=== PATIENT | female | born 1955 | race Caucasian/White ===

== ENCOUNTER 2018-01-31 08:23 | Inpatient (IN) ==
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
[2018-01-31] MEDS ORDERED: Morphine Inj 4 MG/ML Vial IV.PUSH ONE ×2 (09:46→11:38)
[2018-01-31 10:19] LABS: Baso % (Auto) 0.7 % (0.0-2.0); Eos # (Auto) 0.2 th/mm3 (0.0-0.4); Hematocrit 37.2 % (35.0-46.0); Hemoglobin 12.4 gm/dL (11.6-15.3); Lymph # (Auto) 1.7 th/mm3 (1.0-4.8); Lymph % (Auto) 31.7 % (9.0-44.0); Mean Corpuscular HGB Conc 33.3 % (32.0-36.0); Mean Corpuscular Hemoglobin 30.1 pg (27.0-34.0); Mean Corpuscular Volume 90.7 fL (80.0-100.0); Mean Platelet Volume 9.1 fL (7.0-11.0); Mono # (Auto) 0.5 th/mm3 (0.0-0.9); Mono % (Auto) 8.7 % (0.0-8.0); Neut # (Auto) 3.1 th/mm3 (1.8-7.7); Neut % (Auto) 55.9 % (16.0-70.0); Platelet Count 246 th/mm3 (150-450); White Blood Count 5.5 th/mm3 (4.0-11.0)
[2018-01-31 10:54] LABS: Calcium 9.3 mg/dL (8.5-10.1); Carbon Dioxide 25.6 meq/L (21.0-32.0); Potassium 3.8 meq/L (3.5-5.1)
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
[2018-01-31] MEDS ORDERED: Acetaminophen 325 MG Tablet PO PRN (13:34)
[2018-01-31] MEDS ORDERED: Bisacodyl 10 MG Supp RECTAL PRN (13:34)
[2018-01-31] MEDS ORDERED: Naloxone Inj 0.4 MG/ML Vial IV.PUSH PRN (13:35)
[2018-01-31] MEDS ORDERED: Ketorolac Inj 30 MG/ML (IVP) Vial IV.PUSH PRN (13:36)
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
[2018-01-31] MEDS: Morphine Inj 4 MG/ML Vial IV.PUSH PRN (16:11)
[2018-01-31] MEDS: Senna/Docusate Sodium 8.6/50 MG Tablet PO SCH (20:27)
[2018-01-31] MEDS: oxyCODONE/Acetaminophen 10/325 Tablet PO PRN (20:27)
[2018-01-31] MEDS ORDERED: Temazepam 15 MG Capsule PO PRN (21:00)
[2018-02-01] MEDS: Morphine Inj 4 MG/ML Vial IV.PUSH PRN ×3 (00:53→17:55)
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
[2018-02-01] MEDS: Ketorolac Inj 30 MG/ML (IVP) Vial IV.PUSH SCH ×2 (09:25→17:52)
[2018-02-01] MEDS: Senna/Docusate Sodium 8.6/50 MG Tablet PO SCH ×2 (09:26→20:28)
[2018-02-01] MEDS: oxyCODONE/Acetaminophen 10/325 Tablet PO PRN ×2 (15:12→21:44)
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
--- NOTE | 2018-02-01 17:12 | ECG ---
Date Performed: 02/01/2018 Time Performed: 04:22:44 PTAGE: 62 years EKG: Sinus rhythm NORMAL ECG Since the PREVIOUS TRACING , no significant change noted DOCTOR: Helen Dawson Interpretating Date/Time 02/01/2018 17:10:34
[2018-02-01] MEDS: Topiramate 25 MG Tablet PO SCH (17:54)
[2018-02-01] MEDS: clonazePAM 0.5 MG Tablet PO SCH (17:54)
[2018-02-01] MEDS: Enoxaparin Inj 40 MG/0.4 ML Syringe SQ SCH (18:10)
[2018-02-02] MEDS: Ketorolac Inj 30 MG/ML (IVP) Vial IV.PUSH SCH ×2 (00:12→09:44)
[2018-02-02] MEDS: Levothyroxine 150 MCG Tablet PO SCH (05:46)
[2018-02-02] MEDS: Morphine Inj 4 MG/ML Vial IV.PUSH PRN ×4 (05:46→23:22)
--- NOTE | 2018-02-02 07:09 | P.PNOP ---
Subjective Interval history: Resting comfortably with no new complaints Physical Exam Vital signs: Vital Signs 02/01/18 08:00 02/01/18 12:00 02/01/18 20:00 Temperature 98.0 F 98.6 F 97.9 F Pulse Rate 84 80 81 Respiratory Rate 18 16 18 Blood Pressure 112/73 101/64 97/59 L Pulse Oximetry 94 L 97 98 02/02/18 00:00 02/02/18 04:00 Temperature 97.7 F 97.3 F L Pulse Rate 76 76 Respiratory Rate 18 18 Blood Pressure 104/67 110/69 Pulse Oximetry 95 97 Intake & Output 02/01/18 02/02/18 02/02/18 18:59 06:59 18:59 Output Total 200 / 200 Balance -200 / -200 Output: Urine Amount (Catheter) 200 / 200 Indwelling Urethral Catheter 200 / 200 Other: Date of Last Bowel Movement 01/30/18 01/30/18 Narrative: Left upper extremity: Moderate swelling to proximal humerus. Skin is intact. Sling and swath is adjusted and tightened. She has intact sensation distally over the radial ulnar and median nerve distributions with good capillary refills. She is able to fully extend her fingers and make a fist Left lower extremity: No pain with hip range of motion. Dressing taken down showing 2 abrasions over the anterior portion of her knee. Swelling this +3 calf compartments are semi-soft. She has intact sensation distally with good capillary refills. She is active dorsiflexion plantar flexion foot. She has negative Homans sign - Urinary Catheter Management Indwelling Urethral Catheter Cath placed during this visit: no Results - Labs CBC & Chem 7: 01/31/18 09:07 01/31/18 09:07 Assessment and Plan - Assessment and Plan Left tibia plateau fracture Swelling is too great for surgery today. She will continue to remain in a knee immobilizer and ice cuff. Swelling will continue to take several days to improve to be able to make safe surgical incisions enclosures. We will continue to elevate and ice. Bacitracin is ordered daily over abrasions. Adaptic will be applied. Continue the ice cuff Left proximal humerus fracture Alignment is acceptable in near-anatomic. She will continue to treat this nonoperatively. She remain in a sling and swath at all times. No range of motion and nonweightbearing on the left upper extremity. Resume diet Due to nonweightbearing left lower extremity and left upper extremity she will continue to remain and we will assess swelling tomorrow morning. It is more than likely going to be Tuesday or even Tuesday before surgery is safe to proceed on the left tibial plateau
[2018-02-02] MEDS: ARIPiprazole 5 MG Tablet PO SCH (09:07)
[2018-02-02] MEDS: Senna/Docusate Sodium 8.6/50 MG Tablet PO SCH ×2 (09:07→20:56)
[2018-02-02] MEDS: clonazePAM 0.5 MG Tablet PO SCH ×2 (09:07→13:05)
[2018-02-02] MEDS: Enoxaparin Inj 40 MG/0.4 ML Syringe SQ SCH (09:07)
[2018-02-02] MEDS: Duloxetine 60 MG DR Capsule PO SCH (09:07)
[2018-02-02] MEDS: oxyCODONE/Acetaminophen 10/325 Tablet PO PRN ×2 (09:08→16:46)
[2018-02-02] MEDS: Topiramate 25 MG Tablet PO SCH ×2 (09:08→18:44)
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
[2018-02-03] MEDS: Morphine Inj 4 MG/ML Vial IV.PUSH PRN ×3 (03:49→17:51)
[2018-02-03] MEDS: Levothyroxine 150 MCG Tablet PO SCH (06:27)
[2018-02-03] MEDS: oxyCODONE/Acetaminophen 10/325 Tablet PO PRN (06:27)
--- NOTE | 2018-02-03 06:28 | P.PNOP ---
Subjective Interval history: Resting comfortably with no new complaints Physical Exam Vital signs: Vital Signs 02/02/18 08:00 02/02/18 11:46 02/02/18 16:00 Temperature 98.0 F 98.1 F 98.4 F Pulse Rate 62 66 62 Respiratory Rate 17 18 17 Blood Pressure 107/62 91/57 L 91/50 L Pulse Oximetry 97 98 97 02/02/18 20:00 02/03/18 00:00 Temperature 97.9 F 98.0 F Pulse Rate 75 78 Respiratory Rate 17 17 Blood Pressure 90/58 L 89/53 L Pulse Oximetry 94 L 93 L Intake & Output 02/02/18 02/02/18 02/03/18 06:59 18:59 06:59 Output Total 900 / 900 Balance -900 / -900 Output: Urine Amount (Catheter) 900 / 900 Indwelling Urethral Catheter 900 / 900 Other: Date of Last Bowel Movement 01/30/18 01/30/18 Narrative: Left upper extremity: Moderate swelling of her shoulder. Skin is intact. Sling and swath in place. Intact sensation distally over the radial ulnar median nerve distributions with good capillary refills. She is able to fully extend her fingers make a fist Left lower extremity: No pain with hip range of motion. Knee immobilizer in place. Swelling is improving +2. Bacitracin over abrasions. Ice cuff in place. Intact sensation distally with active dorsiflexion plantar flexion of foot - Urinary Catheter Management Indwelling Urethral Catheter Cath placed during this visit: no Results - Labs CBC & Chem 7: 01/31/18 09:07 01/31/18 09:07 Assessment and Plan - Assessment and Plan Left tibia plateau fracture Swelling is too great for surgery today. She will continue to remain in a knee immobilizer and ice cuff. Swelling will continue to take several days to improve to be able to make safe surgical incisions enclosures. We will continue to elevate and ice. Bacitracin is ordered daily over abrasions. Adaptic will be applied. Continue the ice cuff Left proximal humerus fracture Alignment is acceptable in near-anatomic. She will continue to treat this nonoperatively. She remain in a sling and swath at all times. No range of motion and nonweightbearing on the left upper extremity. N.p.o. after midnight on Tuesday night Hold Lovenox after Tuesday's dose Plan for possible surgery on Tuesday for left tibia plateau
[2018-02-03] MEDS: clonazePAM 0.5 MG Tablet PO SCH ×4 (07:52→17:06)
[2018-02-03] MEDS: Topiramate 25 MG Tablet PO SCH ×4 (07:52→17:52)
[2018-02-03] MEDS: Metoprolol Tartrate 25 MG Tablet PO SCH (08:39)
[2018-02-03] MEDS: ARIPiprazole 5 MG Tablet PO SCH (08:41)
[2018-02-03] MEDS: Senna/Docusate Sodium 8.6/50 MG Tablet PO SCH ×2 (08:41→20:21)
[2018-02-03] MEDS: Duloxetine 60 MG DR Capsule PO SCH (08:41)
[2018-02-03] MEDS: Enoxaparin Inj 40 MG/0.4 ML Syringe SQ SCH (08:41)
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
[2018-02-03] MEDS: Baclofen 10 MG Tablet PO SCH (20:21)
[2018-02-03] MEDS ORDERED: Sodium Chlor 0.9% Inj 500 ML IV.SIG ONE (20:56)
[2018-02-04] MEDS: Metoprolol Tartrate 25 MG Tablet PO SCH ×3 (00:41→21:16)
[2018-02-04] MEDS ORDERED: Sodium Chlor 0.9% Inj 500 ML IV.SIG ONE (01:15)
[2018-02-04] MEDS: Baclofen 10 MG Tablet PO SCH ×3 (05:28→21:16)
[2018-02-04] MEDS: Levothyroxine 150 MCG Tablet PO SCH (05:48)
[2018-02-04] MEDS: Topiramate 25 MG Tablet PO SCH ×3 (08:56→17:05)
[2018-02-04] MEDS: Senna/Docusate Sodium 8.6/50 MG Tablet PO SCH ×2 (08:56→21:15)
[2018-02-04] MEDS: clonazePAM 0.5 MG Tablet PO SCH ×4 (08:56→17:05)
[2018-02-04] MEDS: ARIPiprazole 5 MG Tablet PO SCH (08:57)
[2018-02-04] MEDS: Enoxaparin Inj 40 MG/0.4 ML Syringe SQ SCH (08:57)
[2018-02-04] MEDS: Duloxetine 60 MG DR Capsule PO SCH (08:57)
--- NOTE | 2018-02-04 10:28 | P.PNOP ---
Subjective Interval history: Patient resting in bed in severe pain to the left upper arm and left lower leg. Patient is c/o left ankle pain. Patient requesting pain meds. I spoke with primary RN and Percocet given. Physical Exam Vital signs: Vital Signs 02/03/18 12:00 02/03/18 12:59 02/03/18 15:31 Temperature 98.6 F Pulse Rate 82 Respiratory Rate 18 18 18 Blood Pressure 92/53 L Pulse Oximetry 93 L 02/03/18 16:00 02/03/18 17:53 02/03/18 20:00 Temperature 99.2 F 98.8 F Pulse Rate 74 78 Respiratory Rate 18 18 17 Blood Pressure 90/55 L 79/51 L Pulse Oximetry 97 94 L 02/04/18 00:00 02/04/18 04:00 02/04/18 08:00 Temperature 99.6 F 99.1 F 98.8 F Pulse Rate 76 88 79 Respiratory Rate 16 17 18 Blood Pressure 82/51 L 93/50 L 91/56 L Pulse Oximetry 95 93 L 95 Intake & Output 02/03/18 02/04/18 02/04/18 18:59 06:59 18:59 Intake Total 480 / 480 Output Total 650 / 650 675 / 675 Balance -170 / -170 -675 / -675 Intake: Oral 480 / 480 Output: Urine 650 / 650 675 / 675 Other: Date of Last Bowel Movement 01/31/18 Narrative: Left upper extremity: EPL/APB/VERONICA intact. 2+ radial pulse. Moderate swelling to the left upper arm with mild ecchymosis. Sling intact. Skin intact. Left lower leg: Moderate swelling and mild ecchymosis. Calf is soft and nontender. Tenderness to palpation over tibial plateau. Knee immobilizer and ice machine in place. Left ankle: Severe tenderness to palpation of ankle. Moderate swelling and ecchymosis. Limited AROM secondary to pain. Skin is intact. 2+ pedal and posterior tibialis pulses. - Urinary Catheter Management Indwelling Urethral Catheter Cath placed during this visit: no Results - Labs CBC & Chem 7: 01/31/18 09:07 01/31/18 09:07 Assessment and Plan - Assessment and Plan Left tibia plateau fracture Swelling is too great for surgery currently. She will continue to remain in a knee immobilizer and ice cuff. Swelling will continue to take several days to improve to be able to make safe surgical incisions enclosures. We will continue to elevate and ice. Bacitracin is ordered daily over abrasions. Adaptic will be applied. Continue the ice cuff Left proximal humerus fracture Alignment is acceptable in near-anatomic. She will continue to treat this nonoperatively. She remain in a sling and swath at all times. No range of motion and nonweightbearing on the left upper extremity. N.p.o. after midnight on Tuesday night Hold Lovenox after Tuesday's dose Plan for possible surgery on Tuesday for left tibia plateau
--- NOTE | 2018-02-04 11:26 | XR ---
EXAM DATE: 02/04/2018 11:21 AM EDT AGE/SEX: 62 years / Female INDICATIONS: Pain CLINICAL DATA: This is the patient's subsequent encounter. Patient reports that signs and symptoms h ave been present for 2 weeks and indicates a pain score of Nonresponsive. MEDICAL/SURGICAL HISTORY: None. None. COMPARISON: No prior exams available for comparison. FINDINGS: Bony structures are intact and in normal alignment. Joints are intact without dislocation or signifi cant arthropathy. Osseous density is normal. Soft tissues are unremarkable. No radiopaque foreign bodies seen. CONCLUSION: Negative examination Electronically signed by: Haylee Reina MD 02/04/2018 11:24 AM EDT
[2018-02-04] MEDS ORDERED: Ibuprofen 400 MG Tablet PO PRN (15:25)
[2018-02-04] MEDS ORDERED: Acetaminophen 325 MG Tablet PO PRN (15:28)
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
[2018-02-04] MEDS: oxyCODONE/Acetaminophen 10/325 Tablet PO PRN ×2 (16:26→22:05)
[2018-02-04] MEDS: Morphine Inj 4 MG/ML Vial IV.PUSH PRN (17:04)
[2018-02-05] MEDS ORDERED: Sod Chloride 0.9% Inj 1,000 ML IV.SIG ONE (00:28)
[2018-02-05] MEDS: Morphine Inj 4 MG/ML Vial IV.PUSH PRN ×4 (02:08→20:43)
[2018-02-05] MEDS: Baclofen 10 MG Tablet PO SCH ×3 (06:16→20:42)
[2018-02-05] MEDS: oxyCODONE/Acetaminophen 10/325 Tablet PO PRN ×4 (06:16→23:24)
[2018-02-05] MEDS: Levothyroxine 150 MCG Tablet PO SCH (06:17)
--- NOTE | 2018-02-05 09:18 | P.PNOP ---
Subjective Interval history: Patient is sitting up in bed with c/o moderate pain to the LLE and the LUE. Patient denies tingling or numbness to the LUE and LLE. Still notes mild to moderate left ankle pain. Physical Exam Vital signs: Vital Signs 02/04/18 10:54 02/04/18 12:00 02/04/18 16:00 Temperature 98 F 99.0 F Pulse Rate 88 82 Respiratory Rate 18 18 18 Blood Pressure 91/51 L 102/59 L Pulse Oximetry 94 L 95 02/04/18 16:56 02/04/18 17:06 02/04/18 20:00 Temperature 98.3 F Pulse Rate 83 Respiratory Rate 18 18 18 Blood Pressure 92/58 L Pulse Oximetry 97 02/05/18 00:00 02/05/18 04:00 Temperature 98.2 F 97.5 F L Pulse Rate 71 80 Respiratory Rate 18 18 Blood Pressure 83/53 L 91/52 L Pulse Oximetry 93 L 96 Intake & Output 02/04/18 02/05/18 02/05/18 18:59 06:59 18:59 Intake Total 1400 / 1400 Output Total 1650 / 1650 1575 / 1575 Balance -1650 / -1650 -175 / -175 Weight 72.5 kg Intake: IV 1000 / 1000 NS Inj 1,000 ML @ Wide Open IV. 1000 / 1000 SIG BOLUS ONE Rx#:[id number] Oral 400 / 400 Output: Urine 1575 / 1575 Urine Amount (Catheter) 1650 / 1650 Indwelling Urethral Catheter 1650 / 1650 Other: Date of Last Bowel Movement 01/31/18 02/05/18 # Bowel Movements 1 1 Narrative: Left upper extremity: EPL/APB/VERONICA intact. 2+ radial pulse. Moderate swelling to the left upper arm with mild ecchymosis. Sling intact. Skin intact. Left lower leg: Moderate swelling and mild ecchymosis. Calf is soft and nontender. Tenderness to palpation over tibial plateau. Knee immobilizer and ice machine in place. Compartments are soft. Left ankle: Moderate tenderness to palpation of ankle. Mild swelling and ecchymosis improving. Limited AROM secondary to pain. Skin is intact. 2+ pedal and posterior tibialis pulses. - Urinary Catheter Management Indwelling Urethral Catheter Cath placed during this visit: no Reason for continuing: Other continuation reason Results - Labs CBC & Chem 7: 01/31/18 09:07 01/31/18 09:07 - Imaging Impressions Ankle X-Ray 02/04/18 10:22 CONCLUSION: Negative examination Assessment and Plan - Assessment and Plan Left tibia plateau fracture Swelling is too great for surgery currently. She will continue to remain in a knee immobilizer and ice cuff. Swelling will continue to take several days to improve to be able to make safe surgical incisions enclosures. We will continue to elevate and ice. Bacitracin is ordered daily over abrasions. Adaptic will be applied. Continue the ice cuff Left proximal humerus fracture Alignment is acceptable in near-anatomic. She will continue to treat this nonoperatively. She remain in a sling and swath at all times. No range of motion and nonweightbearing on the left upper extremity. N.p.o. after midnight on Tuesday night Hold Lovenox after Tuesday's dose Plan for possible surgery on Tuesday for left tibia plateau XR of the left ankle negative for fracture per images and radiologist report.
[2018-02-05] MEDS: Senna/Docusate Sodium 8.6/50 MG Tablet PO SCH ×2 (09:25→20:42)
[2018-02-05] MEDS: Topiramate 25 MG Tablet PO SCH ×3 (09:25→17:47)
[2018-02-05] MEDS: clonazePAM 0.5 MG Tablet PO SCH ×3 (09:26→17:47)
[2018-02-05] MEDS: Duloxetine 60 MG DR Capsule PO SCH (09:26)
[2018-02-05] MEDS: ARIPiprazole 5 MG Tablet PO SCH (09:30)
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
[2018-02-05] MEDS ORDERED: Metoprolol Tartrate 25 MG Tablet PO SCH (22:30)
[2018-02-05] MEDS ORDERED: Chlorhexidine Gluconate 2% 1 Pack (2 Cloths) TOPICAL SCH (22:30)
[2018-02-05] MEDS ORDERED: Sodium Chlor 0.9% Inj 500 ML IV.SIG SCH (23:00)
[2018-02-06] MEDS: Levothyroxine 150 MCG Tablet PO SCH (06:02)
[2018-02-06] MEDS: Morphine Inj 4 MG/ML Vial IV.PUSH PRN ×5 (06:02→22:28)
[2018-02-06] MEDS: Baclofen 10 MG Tablet PO SCH ×3 (06:05→21:30)
--- NOTE | 2018-02-06 06:42 | P.PNOP ---
Subjective Interval history: s/p left tibial plateau fx s/p left proximal humerus fx doing well. no changes Physical Exam Vital signs: Vital Signs 02/05/18 08:00 02/05/18 12:00 02/05/18 16:00 Temperature 98.5 F 98.7 F 98.3 F Pulse Rate 72 78 82 Respiratory Rate 18 16 18 Blood Pressure 100/60 91/57 L 99/51 L Pulse Oximetry 96 96 96 02/05/18 22:40 02/05/18 22:47 02/06/18 00:00 Temperature 98.1 F 98.2 F Pulse Rate 84 86 Respiratory Rate 18 18 18 Blood Pressure 106/67 98/56 L Pulse Oximetry 96 95 02/06/18 04:00 Temperature 98.3 F Pulse Rate 75 Respiratory Rate 18 Blood Pressure 99/59 L Pulse Oximetry 94 L Intake & Output 02/05/18 02/05/18 02/06/18 06:59 18:59 06:59 Intake Total 1400 / 1400 Output Total 1575 / 1575 750 / 750 Balance -175 / -175 -750 / -750 Weight 72.5 kg Intake: IV 1000 / 1000 NS Inj 1,000 ML @ Wide Open IV. 1000 / 1000 [facility] Rx#:[id number] Oral 400 / 400 Output: Urine 1575 / 1575 750 / 750 Other: Date of Last Bowel Movement 02/05/18 02/05/18 02/05/18 # Bowel Movements 1 2 Narrative: LUE: +sling. intact. NVI to median/ulnar nerves. good extension of wrist and fingers LLE: 1+ swelling. NVI with good dorsiflexion. - Urinary Catheter Management Indwelling Urethral Catheter Cath placed during this visit: no Reason for continuing: Other continuation reason Results - Labs CBC & Chem 7: 01/31/18 09:07 01/31/18 09:07 - Imaging Impressions Ankle X-Ray 02/04/18 10:22 CONCLUSION: Negative examination Assessment and Plan - Assessment and Plan 1) Left tibia plateau fracture -resume diet -npo after [place] -elevate/ice -knee brace -surgery tomorrow with [facility] 2) Left proximal humerus fracture Alignment is acceptable in near-anatomic. She will continue to treat this nonoperatively. She remain in a sling and swath at all times. No range of motion and nonweightbearing on the left upper extremity.
[2018-02-06] MEDS ORDERED: Enoxaparin Inj 30 MG/0.3 ML Syringe SQ ONE (06:43)
[2018-02-06] MEDS: ARIPiprazole 5 MG Tablet PO SCH (08:16)
[2018-02-06] MEDS: clonazePAM 0.5 MG Tablet PO SCH ×3 (08:16→17:01)
[2018-02-06] MEDS: Senna/Docusate Sodium 8.6/50 MG Tablet PO SCH ×2 (08:16→21:30)
[2018-02-06] MEDS: Duloxetine 60 MG DR Capsule PO SCH (08:16)
[2018-02-06] MEDS: Topiramate 25 MG Tablet PO SCH ×3 (08:16→17:01)
[2018-02-06] MEDS ORDERED: Morphine Sulfate Inj 2 MG/ML Vial ONE (09:17)
[2018-02-06] MEDS ORDERED: Vancomycin Inj 1,000 MG in Sodium Chlor 0.9% Inj 250 ML IV.SIG ONE (11:30)
[2018-02-06] MEDS ORDERED: ceFAZolin 2 GM Premix Inj 2 GM/50 ML PIGGYBACK IV.SIG ONE (11:31)
[2018-02-06] MEDS ORDERED: Labetalol HCl Inj 100 MG/20 ML Vial IV.CONT ONE (12:00)
[2018-02-06] MEDS ORDERED: Lidocaine PF 1% Inj 5 ML Syringe INFILTRATN ONE (12:00)
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
[2018-02-06] MEDS ORDERED: Post-op Orders (for Pharmacy) OTHER STA (12:09)
--- NOTE | 2018-02-06 12:17 | P.OP ---
- Preoperative Diagnosis (1) Fracture, tibial plateau Date of procedure: 02/06/18 Procedure: Open reduction internal fixation left tibial plateau fracture Anesthesia: GETA Surgeon: Rell Park MD Adjunct Spanish Instructor: DANICA Mckeon PA-C The surgical procedure was assisted by my physician underwriting assistant. My P.A. presence was necessary throughout this case for the manipulation and positioning of the surgical extremity. My P.A. was assisting me throughout the duration of this procedure. The skill set of a physician underwriting assistant was medically necessary to complete this procedure. During the surgical case the electrical design technician was working at the back table and the physician underwriting assistant was directly assisting me. Operation and Findings: Implants used: Synthes Plan of activity: Nonweightbearing, no quad sets This patient was seen and evaluated preoperatively. Patient sustained an injury resulting a displaced comminuted left tibial plateau fracture. Informed consent was obtained preoperatively after detailed discussion of the risks and benefits of surgery. Risk of surgery including bleeding, infection, nonunion, painful hardware, stiffness, loss of motion, arthritis, need for knee replacement, as well as medical complications including blood clots, stroke, heart attack, and were discussed. I also discussed the possibility of using allograft bone graft . Preoperatively the operative site was marked. Patient was brought to the operating room and placed on the operating room table. Intravenous sedation and general endotracheal anesthesia were administered. IV antibiotics were given and a time out procedure was preformed. The operative leg was prepped with alcohol followed by Hibiclens and draped in the usual sterile fashion. Procedure began with a 4-inch curvilinear incision over the anterolateral knee. Subcutaneous tissue was treated with Bovie. Iliotibial band was split in line with fibers. A sub-meniscal arthrotomy was created and the lateral articular surface was visualized. There was significant comminution and depression of the articular surface. The lateral plateau fragment was depressed approximately 3 cm. A window was made in the metaphyseal region and bone tamps used to elevate the articular surface. Articular surface reduced into excellent alignment. K-wires were used for provisional fixation. At this point cancellous bone graft was packed under the articular surface using a bone tamp. The cortical fragments were now reduced. Fluoroscopy revealed excellent alignment of fracture. A proximal tibial plate was selected. The plate was provisionally held with K-wires. 3.5 cortical screws were used compress plate to bone distally, and a periarticular clamp was used to compress the medial and lateral tibial plateau fracture fragments together. Multiple locking screws were now placed proximally. At this 10 cc of Cerament bone cement was mixed. The cement was now injected into the metaphyseal region for additional support of the articular surface. Additional screws were placed in the shaft. K-wires were removed. Final fluoroscopy showed excellent alignment of fracture with well-placed hardware. The incision was thoroughly irrigated. Arthrotomy and iliotibial band closed with #1 Vicryl,. Subcutaneous tissues closed with 3-0 Vicryl and skin was closed with jah. Sterile dressings were applied. The patient was transferred to recovery in stable condition.
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
[2018-02-06] MEDS ORDERED: *morphine SULFATE 10 MG/ML PERIprocedure ONLY ONE ×2 (12:38→13:06)
[2018-02-06] MEDS ORDERED: fentaNYL Citrate Inj 100 MCG/2 ML Ampul ONE (13:22)
[2018-02-06] MEDS: Calcium/Vitamin D 250/125 MG Tablet PO SCH ×2 (13:30→17:01)
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
[2018-02-06] MEDS: ceFAZolin Inj 2,000 MG in Sodium Chlor 0.9% Inj 80 ML IV.SIG SCH (17:01)
[2018-02-06] MEDS: Vancomycin Inj 1 GM/200 ML PIGGYBACK IV.SIG SCH (21:30)
[2018-02-07] MEDS: ceFAZolin Inj 2,000 MG in Sodium Chlor 0.9% Inj 80 ML IV.SIG SCH ×3 (03:18→17:18)
[2018-02-07] MEDS: Baclofen 10 MG Tablet PO SCH ×3 (03:25→21:05)
[2018-02-07] MEDS: Morphine Inj 4 MG/ML Vial IV.PUSH PRN ×6 (04:05→23:28)
[2018-02-07] MEDS: Levothyroxine 150 MCG Tablet PO SCH (05:37)
[2018-02-07 06:41] LABS: Hematocrit 23.3 % (35.0-46.0); Hemoglobin 7.8 gm/dL (11.6-15.3)
--- NOTE | 2018-02-07 07:12 | P.PNOP ---
Subjective Interval history: POD 1 s/p ORIF left tibial plateau fx s/p left proximal humerus fx doing well. reports pain. controlled. Physical Exam Vital signs: Vital Signs 02/06/18 08:00 02/06/18 12:31 02/06/18 12:45 Temperature 98.6 F 98 F Pulse Rate 76 80 74 Respiratory Rate 16 16 16 Blood Pressure 114/71 170/93 H 156/92 H Pulse Oximetry 96 100 100 02/06/18 13:00 02/06/18 13:20 02/06/18 13:29 Temperature 98.4 F 98.5 F Pulse Rate 76 76 70 Respiratory Rate 16 15 Blood Pressure 158/91 H 158/91 H 149/90 H Pulse Oximetry 100 96 02/06/18 14:00 02/06/18 14:52 02/06/18 16:00 Temperature 97.9 F Pulse Rate 88 Respiratory Rate 18 18 17 Blood Pressure 159/92 H Pulse Oximetry 98 02/06/18 20:00 02/07/18 00:00 Temperature 99.0 F 98.7 F Pulse Rate 87 93 H Respiratory Rate 18 18 Blood Pressure 112/63 98/56 L Pulse Oximetry 94 L 95 Intake & Output 02/06/18 02/07/18 02/07/18 18:59 06:59 18:59 Intake Total 3020 / 3020 300 / 300 Output Total 1050 / 1050 3000 / 3000 Balance 1970 / 1970 -2700 / -2700 Intake: IV 1320 / 1320 300 / 300 LR 1000 mL Inj 1,000 ML @ 80 20 / 20 mls/hr IV.CONT .[id number] [facility] Rx# :[id number] LR 1000 mL Inj 1,000 ML @ 30 1000 / 1000 mls/hr IV.SIG .Q24H [facility] Rx#: [id number] Vancomycin Inj 1 gm In 200 ml @ 200 / 200 200 mls/hr IV.SIG Q12H [facility] Rx# :[id number] Vancomycin Inj 1,000 MG In NS 250 / 250 Inj 250 ML @ 250 mls/hr IV.SIG ONCE ONE Rx#:[id number] Ancef 2 GM Premix Inj 2 gm In 50 / 50 50 ml @ 100 mls/hr IV.SIG ONCE ONE Rx#:[id number] Ancef Inj 2,000 MG In NS Inj 80 100 / 100 ML @ 200 mls/hr IV.SIG Q8H [facility] Rx#:[id number] Anesthesia Amount 1700 / 1700 Output: Urine 3000 / 3000 Estimated Blood Loss 50 / 50 Urine Amount (Catheter) 1000 / 1000 Indwelling Urethral Catheter 1000 / 1000 Other: Date of Last Bowel Movement 02/05/18 02/06/18 Narrative: LUE; +sling. nvi to median/ulna nerve. LLE: dressings clean and dry. intact. NVI. good dorsiflexion. compartments soft. - Urinary Catheter Management Indwelling Urethral Catheter Cath placed during this visit: no Reason for continuing: Other continuation reason Results - Labs CBC & Chem 7: 02/07/18 06:13 01/31/18 09:07 Laboratory Results - last 24 hr 02/07/18 06:13 Hgb 7.8 L Hct 23.3 L - Imaging Impressions Knee X-Ray 02/06/18 00:00 CONCLUSION: Limited images as detailed above. Assessment and Plan - Assessment and Plan 1) Left tibia plateau fracture s/p ORIF - POD 1 -NWB -no quad sets/leg lifts -PROM 0-90 -knee brace at all times -elevate and ice -CM for DC planning to SNF. patient lives alone and will need SNF 2) Left proximal humerus fracture - nonop Alignment is acceptable in near-anatomic. She will continue to treat this nonoperatively. She remain in a sling and swath at all times. No range of motion and nonweightbearing on the left upper extremity.
[2018-02-07] MEDS: Vancomycin Inj 1 GM/200 ML PIGGYBACK IV.SIG SCH (08:32)
[2018-02-07] MEDS: Duloxetine 60 MG DR Capsule PO SCH (08:46)
[2018-02-07] MEDS: Senna/Docusate Sodium 8.6/50 MG Tablet PO SCH ×2 (08:46→21:05)
[2018-02-07] MEDS: Topiramate 25 MG Tablet PO SCH ×3 (08:47→18:36)
[2018-02-07] MEDS: Calcium/Vitamin D 250/125 MG Tablet PO SCH ×3 (08:47→17:18)
[2018-02-07] MEDS: ARIPiprazole 5 MG Tablet PO SCH (08:47)
[2018-02-07] MEDS: clonazePAM 0.5 MG Tablet PO SCH ×3 (08:48→17:18)
[2018-02-07] MEDS: Enoxaparin Inj 30 MG/0.3 ML Syringe SQ SCH (10:30)
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
[2018-02-08] MEDS: ceFAZolin Inj 2,000 MG in Sodium Chlor 0.9% Inj 80 ML IV.SIG SCH ×2 (01:17→10:13)
[2018-02-08] MEDS: Baclofen 10 MG Tablet PO SCH ×3 (04:52→20:46)
[2018-02-08] MEDS: Morphine Inj 4 MG/ML Vial IV.PUSH PRN ×2 (04:56→10:13)
[2018-02-08] MEDS: Levothyroxine 150 MCG Tablet PO SCH (05:26)
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
[2018-02-08] MEDS: Enoxaparin Inj 30 MG/0.3 ML Syringe SQ SCH (08:49)
[2018-02-08] MEDS: Duloxetine 60 MG DR Capsule PO SCH (08:50)
[2018-02-08] MEDS: Topiramate 25 MG Tablet PO SCH ×3 (08:50→18:01)
[2018-02-08] MEDS: Senna/Docusate Sodium 8.6/50 MG Tablet PO SCH ×2 (08:50→20:46)
[2018-02-08] MEDS: ARIPiprazole 5 MG Tablet PO SCH (08:50)
[2018-02-08] MEDS: clonazePAM 0.5 MG Tablet PO SCH ×3 (08:50→18:01)
[2018-02-08] MEDS: Calcium/Vitamin D 250/125 MG Tablet PO SCH ×3 (08:50→18:02)
[2018-02-08] MEDS ORDERED: Morphine Inj 4 MG/ML Vial IV.PUSH PRN (14:39)
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
[2018-02-09] MEDS: Baclofen 10 MG Tablet PO SCH ×3 (04:24→20:37)
[2018-02-09] MEDS: Levothyroxine 150 MCG Tablet PO SCH (06:23)
--- NOTE | 2018-02-09 07:08 | P.PNOP ---
Subjective Interval history: Resting comfortably. States that she is going to rehab today Physical Exam Vital signs: Vital Signs 02/08/18 08:00 02/08/18 12:00 02/08/18 16:00 Temperature 98.3 F 98.7 F 98.6 F Pulse Rate 90 90 95 H Respiratory Rate 17 17 17 Blood Pressure 104/56 L 102/58 L 107/65 Pulse Oximetry 93 L 97 98 02/08/18 20:00 02/09/18 00:00 02/09/18 04:00 Temperature 98.6 F 98.3 F 98.1 F Pulse Rate 89 93 H 77 Respiratory Rate 17 17 17 Blood Pressure 97/62 L 115/64 116/66 Pulse Oximetry 93 L 94 L 96 Intake & Output 02/08/18 02/09/18 02/09/18 18:59 06:59 18:59 Intake Total 1200 / 1200 Output Total 900 / 900 2475 / 2475 Balance 300 / 300 -2475 / -2475 Weight 72.5 kg Intake: Oral 1200 / 1200 Output: Urine 2475 / 2475 Urine Amount (Catheter) 900 / 900 Indwelling Urethral Catheter 900 / 900 Other: Date of Last Bowel Movement 02/07/18 02/07/18 Narrative: Left upper extremity: Sling in place with moderate swelling over shoulder. Intact sensation distally with full extension flexion of all fingers Left lower extremity: Knee immobilizer in place. Clean dry dressings intact. Intact sensation distally with active dorsiflexion plantar flexion of foot. good capillary refills and distal pulses - Urinary Catheter Management Indwelling Urethral Catheter Cath placed during this visit: no Reason for continuing: Acute urinary retention Results - Labs CBC & Chem 7: 02/07/18 06:13 01/31/18 09:07 Assessment and Plan - Assessment and Plan 1) Left tibia plateau fracture s/p ORIF - POD 3 -NWB -no quad sets/leg lifts -PROM 0-90 -knee brace at all times -elevate and ice -CM for DC planning to SNF. patient lives alone and will need SNF -ortho clear for DC to SNF once arrangements made 2) Left proximal humerus fracture - nonop Alignment is acceptable in near-anatomic. She will continue to treat this nonoperatively. She remain in a sling and swath at all times. No range of motion and nonweightbearing on the left upper extremity. [employer] Prescription Drug Monitoring Database has been queried and verified prior to prescribing the controlled substance. Acute pain exception. This patient has normal, predicted, physiological, and time limited response to an adverse mechanical stimulus associated with surgery, trauma, or acute illness as described in my notes. There is a lack of alternative treatment options other than to include the prescribed narcotic treatment for this condition.
[2018-02-09] MEDS: clonazePAM 0.5 MG Tablet PO SCH ×4 (07:46→17:23)
[2018-02-09] MEDS: Duloxetine 60 MG DR Capsule PO SCH ×2 (07:46→19:06)
[2018-02-09] MEDS: Senna/Docusate Sodium 8.6/50 MG Tablet PO SCH ×3 (07:46→20:37)
[2018-02-09] MEDS: Calcium/Vitamin D 250/125 MG Tablet PO SCH ×4 (07:46→17:23)
[2018-02-09] MEDS: Topiramate 25 MG Tablet PO SCH ×4 (07:47→17:23)
[2018-02-09] MEDS: ARIPiprazole 5 MG Tablet PO SCH (08:05)
[2018-02-09] MEDS: Enoxaparin Inj 30 MG/0.3 ML Syringe SQ SCH ×2 (10:25→18:42)
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
[2018-02-09 16:32] LABS: Hematocrit 22.4 % (35.0-46.0); Hemoglobin 7.8 gm/dL (11.6-15.3)
[2018-02-10] MEDS: Baclofen 10 MG Tablet PO SCH ×3 (04:29→20:48)
[2018-02-10] MEDS: Levothyroxine 150 MCG Tablet PO SCH (05:47)
[2018-02-10] MEDS: clonazePAM 0.5 MG Tablet PO SCH ×3 (08:30→18:47)
[2018-02-10] MEDS: Duloxetine 60 MG DR Capsule PO SCH (08:30)
[2018-02-10] MEDS: Topiramate 25 MG Tablet PO SCH ×3 (08:30→18:47)
[2018-02-10] MEDS: Senna/Docusate Sodium 8.6/50 MG Tablet PO SCH ×2 (08:30→20:48)
[2018-02-10] MEDS: Calcium/Vitamin D 250/125 MG Tablet PO SCH ×3 (08:31→18:47)
[2018-02-10] MEDS: ARIPiprazole 5 MG Tablet PO SCH (08:31)
[2018-02-10] MEDS: Enoxaparin Inj 30 MG/0.3 ML Syringe SQ SCH (10:49)
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
[2018-02-11] MEDS: Baclofen 10 MG Tablet PO SCH ×2 (05:13→12:06)
[2018-02-11] MEDS: Levothyroxine 150 MCG Tablet PO SCH (05:14)
--- NOTE | 2018-02-11 07:28 | P.PNOP ---
Subjective Interval history: Resting comfortably. Is anticipating discharge to rehab Physical Exam Vital signs: Vital Signs 02/10/18 08:00 02/10/18 12:00 02/10/18 12:50 Temperature 98.2 F 98.3 F Pulse Rate 97 H Respiratory Rate 16 20 16 Blood Pressure 116/65 105/63 Pulse Oximetry 16 L 98 02/10/18 16:00 02/10/18 20:00 02/11/18 00:00 Temperature 98.3 F 97.3 F L 98.1 F Pulse Rate 86 87 86 Respiratory Rate 18 17 17 Blood Pressure 92/54 L 98/54 L 102/59 L Pulse Oximetry 94 L 98 97 02/11/18 04:00 Temperature 97.8 F Pulse Rate 86 Respiratory Rate 17 Blood Pressure 99/57 L Pulse Oximetry 98 Intake & Output 02/10/18 02/11/18 02/11/18 18:59 06:59 18:59 Weight 72.9 kg Other: Date of Last Bowel Movement 02/07/18 02/10/18 Narrative: Left upper extremity: Sling and swath in place. Moderate swelling over shoulder. Intact sensation over radial ulnar median nerve distributions with good capillary refills. Full extension flexion of all fingers. Left lower extremity: Clean dry dressings intact. Knee immobilizer in place. Distally intact sensation with active dorsiflexion and plantarflexion of foot - Urinary Catheter Management Indwelling Urethral Catheter Cath placed during this visit: yes, but has since been removed by the nurse Reason for continuing: Decision to DC catheter Removal date: 02/09/18 Removal time: 10:30 Results - Labs CBC & Chem 7: 02/09/18 15:37 01/31/18 09:07 Laboratory Results - last 24 hr 02/07/18 06:13 Vit D 1,25-Dihydroxy 57 - Imaging Impressions Knee X-Ray 02/10/18 00:00 CONCLUSION: 1. Open reduction and internal fixation of the lateral tibial plateau fracture with a sideplate and osseous screws. 2. While the main fracture fragments appear to be in adequate anatomic alignment, there is a small fragment which projects above the articulating surface. Clinical significance of this is uncertain. Assessment and Plan - Assessment and Plan 1) Left tibia plateau fracture s/p ORIF - POD 4 -NWB -no quad sets/leg lifts -PROM 0-90 -knee brace at all times -elevate and ice -CM for DC planning to SNF. patient lives alone and will need SNF -ortho clear for DC to SNF once arrangements made 2) Left proximal humerus fracture - nonop Alignment is acceptable in near-anatomic. She will continue to treat this nonoperatively. She remain in a sling and swath at all times. No range of motion and nonweightbearing on the left upper extremity. [employer] Prescription Drug Monitoring Database has been queried and verified prior to prescribing the controlled substance. Acute pain exception. This patient has normal, predicted, physiological, and time limited response to an adverse mechanical stimulus associated with surgery, trauma, or acute illness as described in my notes. There is a lack of alternative treatment options other than to include the prescribed narcotic treatment for this condition.
[2018-02-11] MEDS: Calcium/Vitamin D 250/125 MG Tablet PO SCH (09:08)
[2018-02-11] MEDS: clonazePAM 0.5 MG Tablet PO SCH ×2 (09:08→12:07)
[2018-02-11] MEDS: ARIPiprazole 5 MG Tablet PO SCH (09:08)
[2018-02-11] MEDS: Duloxetine 60 MG DR Capsule PO SCH (09:08)
[2018-02-11] MEDS: Senna/Docusate Sodium 8.6/50 MG Tablet PO SCH (09:08)
[2018-02-11] MEDS: Topiramate 25 MG Tablet PO SCH ×2 (09:09→12:07)
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
[2018-02-11] MEDS: Enoxaparin Inj 30 MG/0.3 ML Syringe SQ SCH (12:11)
== END 2018-02-11 12:16 ==
LOC: NEPE 08:23 → NEDA 12:32 → NEPGCP 16:03 → N06 02-01 15:43
PROVIDERS: ADMIT Hospitalist; ATTEND Hospitalist